=== PATIENT | male | born 1975 | race Caucasian/White ===

== ENCOUNTER 2017-11-22 11:21 | Emergency (ER) | payer OTHER ==
[~2017-11-22] VITALS: Ht 170.2 cm; Wt 88.0 kg
[2017-11-22 11:43] VITALS: Ht 170.2 cm; Wt 88.0 kg
[2017-11-22 12:08] LABS: BASOPHIL % 0.3 % (0-2); PLATELET COUNT 159 x10^3mcL (130-400); RED CELL DISTRIBUTION WIDTH 12.8 % (11.5-14.5)
[2017-11-22 12:27] LABS: CARBON DIOXIDE 30.8 mmol/L (21-32); CHLORIDE SERUM 101 mmol/L (98-107); CREATININE SERUM 1.1 mg/dL (0.7-1.3); GFR1 > 60 mL/min; GLUCOSE SERUM 151 mg/dL (74-106); POTASSIUM SERUM 4.5 mmol/L (3.5-5.1); SODIUM SERUM 137 mmol/L (136-145)
[2017-11-22 12:31] LABS: ALBUMIN 4.3 g/dL (3.4-5.0); ALKALINE PHOSPHATASE 61 U/L (46-116); ALT/SGPT 98 U/L (16-63); AMYLASE 42 U/L (25-115); AST/SGOT 69 U/L (15-37); BILIRUBIN TOTAL 1.2 mg/dL (0.20-1.00); LIPASE 172 IU/L (73-393)
[2017-11-22 12:44] LABS: TOTAL PROTEIN, SERUM 8.7 g/dL (6.4-8.2)
[2017-11-22 14:03] VITALS: BP 124/74
== END 2017-11-22 14:03 | disposition home or self-care (01) ==
LOC: ED 11:21
PROVIDERS: Emergency Medicine
DX: R10.9 Unspecified abdominal pain (principal); R19.7 Diarrhea, unspecified
CPT/HCPCS: 36415; 83880; J1885

== ENCOUNTER 2019-07-31 20:30 | Emergency (ER) | payer OTHER ==
[~2019-07-31] VITALS: Ht 172.7 cm; Wt 94.8 kg
[2019-07-31 20:36] VITALS: Ht 172.7 cm; Wt 94.8 kg
[2019-07-31 21:48] VITALS: BP 143/80
== END 2019-07-31 21:48 | disposition home or self-care (01) ==
LOC: ED 20:30
DX: M54.2 Cervicalgia (principal); M25.512 Pain in left shoulder; M25.511 Pain in right shoulder; V43.52XA Car driver injured in collision with other type car in traffic accident, initial encounter; Y93.I9 Activity, other involving external motion; Y92.488 Other paved roadways as the place of occurrence of the external cause; Y99.8 Other external cause status
CPT/HCPCS: J1885

== ENCOUNTER 2019-11-01 18:41 | Emergency (ER) | payer OTHER ==
[~2019-11-01] VITALS: Ht 170.2 cm; Wt 94.9 kg
[2019-11-01 19:07] VITALS: Ht 170.2 cm; Wt 94.9 kg
[2019-11-01 20:59] VITALS: BP 143/87
== END 2019-11-01 20:59 | disposition home or self-care (01) ==
LOC: ED 18:41
DX: T78.49XA Other allergy, initial encounter (principal); L50.9 Urticaria, unspecified; X58.XXXA Exposure to other specified factors, initial encounter
CPT/HCPCS: J2930; Q0163